=== PATIENT | female | born 1955 | race Caucasian/White ===

== ENCOUNTER 2018-08-09 06:15 | Emergency (ER) | payer OTHER ==
[~2018-08-09] VITALS: Ht 149.9 cm; Wt 90.5 kg
[~2018-08-09 06:15] MED LIST: ACET-2247 PO; ATOR40TA28 PO; AUD NEB; BISA10S PR; BUDE0.5A3 NEB; BUME1TAB17 PO; DIPH25 PO; DULO30CA2 PO; FERR-89 PO; HEPA500018 SQ; INSLAN SQ; INSU100V SQ; IPRNEB IH; LEVE250T55 PO; METO25 PO; NYST15PO3 TP; PANT40TA25 PO; SEVEC800 PO; SODI650T PO; VIT1TAB.4 PO; [UNRECOGNIZED DRUG - CODE] SQ; [UNRECOGNIZED DRUG - CODE] TP
[2018-08-09] MEDS ORDERED: HYDR-4119 PO (06:33)
[2018-08-09] MEDS ORDERED: FERG325 PO (06:37)
[2018-08-09] MEDS ORDERED: NUT.237L66 PO (06:45)
[2018-08-09] MEDS ORDERED: BUDE0.255 NEB (06:46)
[2018-08-09] MEDS ORDERED: BUME1TAB17 PO (06:47)
[2018-08-09 06:53] LABS: BASOPHILS % (AUTO) 0.9 % (0.0-2.0); EOSINOPHILS % (AUTO) 4.4 % (1.0-6.0); HEMOGLOBIN 8.1 g/dL (12.0-16.0); LYMPHOCYTES # (AUTO) 3.7 K/uL (1.0-4.8); LYMPHOCYTES % (AUTO) 44.3 % (22.0-44.0); MEAN CORPUSCULAR HEMOGLOBIN 28.3 pg (26.0-34.0); MEAN CORPUSCULAR HGB CONC 32.6 G/dL (31.0-37.0); MEAN CORPUSCULAR VOLUME 87 fL (80-100); MONOCYTES # (AUTO) 0.5 K/uL (0.1-1.0); MONOCYTES % (AUTO) 6.3 % (2.0-9.0); NEUTROPHILS # (AUTO) 3.7 K/uL (1.8-7.7); NEUTROPHILS % (AUTO) 44.1 % (40.0-70.0); PLATELET COUNT (AUTO) 257 K/uL (150-450); RED BLOOD CELL COUNT(AUTO) 2.87 MIL/uL (4.00-5.20); RED CELL DISTRIBUTION WIDTH 15.4 % (11.5-14.5)
[2018-08-09 07:04] LABS: CALCIUM, TOTAL 9.5 mg/dL (8.8-10.5); CREATININE 5.73 mg/dL (0.60-1.30); POTASSIUM 4.3 mmol/L (3.5-5.1)
[2018-08-09 07:05] LABS: INR 0.9 (0.9-1.1); PROTHROMBIN TIME 9.9 SEC (9.4-11.6)
[2018-08-09 07:13] LABS: LACTIC ACID 0.6 mmol/L (0.4-2.0)
[2018-08-09 07:19] LABS: ALBUMIN 2.9 g/dL (3.4-5.0); BILIRUBIN,TOTAL 0.3 mg/dL (0.1-1.0); TOTAL PROTEIN, SERUM 6.9 g/dL (6.4-8.2)
[2018-08-09] MEDS ORDERED: MORPHINE SULFATE 4 MG/ML SYRINGE IVP ONE (07:45)
[2018-08-09] MEDS ORDERED: ONDANSETRON HCL 4 MG/2 ML VIAL IVP ONE (07:45)
[2018-08-09] MEDS ORDERED: MORPHINE SULFATE 4 MG/ML SYRINGE IM ONE (08:00)
[2018-08-09 11:09] VITALS: BP 116/71
== END 2018-08-09 11:51 | disposition home or self-care (01) ==
LOC: EMS 06:15
DX: M54.5 Low back pain (principal); R06.02 Shortness of breath; R60.0 Localized edema; I11.0 Hypertensive heart disease with heart failure; I50.9 Heart failure, unspecified; E11.9 Type 2 diabetes mellitus without complications; J44.9 Chronic obstructive pulmonary disease, unspecified; F31.9 Bipolar disorder, unspecified; Z88.0 Allergy status to penicillin; Z88.8 Allergy status to other drugs, medicaments and biological substances; Z88.6 Allergy status to analgesic agent; Z79.4 Long term (current) use of insulin; Z79.899 Other long term (current) drug therapy
CPT/HCPCS: 36415; 71045; 80053; 82962; 83605; 83690; 83880; 84484; 85025; 85610; 93005; 96372; 99285; J2270